=== PATIENT | male | born 1970 | race Caucasian/White ===

== ENCOUNTER 2017-08-17 06:44 | Emergency (ER) | payer OTHER, MEDICAID ==
[~2017-08-17] VITALS: Ht 175.3 cm; Wt 88.5 kg
[2017-08-17] MEDS ORDERED: HYDROcodone-ACET 10/325MG TAB PO ONE (07:45)
[2017-08-17] MEDS ORDERED: SODIUM CHLORIDE 0.9% 1,000 ML IV ONE (08:06)
[2017-08-17] MEDS ORDERED: HYDROmorphone HCL 2 MG/ML VL IV ONE ×3 (09:30→15:00)
[2017-08-17] MEDS ORDERED: ONDANSETRON HCL 4 MG/2 ML VIAL IV ONE (09:30)
[2017-08-17 09:33] LABS: Basophils # (auto) 0 uL; Basophils % (auto) 0.1 % (0.0-2.0); Eosinophils # (auto) 0 uL; Eosinophils % (auto) 0.2 % (0.0-7.0); Hemoglobin 17.6 g/dL (13.5-17.5); Lymphocytes # (auto) 0.7 uL; Mean Corpuscular Hemoglobin 30.3 pg (28.0-32.0); Mean Corpuscular Hgb Conc. 33.8 g/dL (32.0-36.0); Mean Corpuscular Volume 89.8 fL (80.0-100.0); Monocytes # (auto) 0.9 uL; Monocytes % (auto) 4.8 % (0.0-12.0); Neutrophils # (auto) 16.4 uL; Neutrophils % (auto) 90.9 % (37.0-80.0); Nucleated Red Blood Cells % 0.1 %; Platelet Count (auto) 210 10^3/uL (140-450); Red Blood Cells 5.79 10^6/uL (4.5-5.90); Red Cell Distribution Width 13.8 % (11.8-14.3); White Blood Cell 18.1 10^3/uL (4.4-10.8)
[2017-08-17 09:59] LABS: Anion Gap 6 (5-15); BUN/Creatinine Ratio 17.1; Blood Urea Nitrogen 14 mg/dL (7-18); Carbon Dioxide 26 mmol/L (21-32); Chloride 105 mmol/L (98-107); GFR African American 130 mL/min; GFR Non-African American 107 mL/min; Glucose 107 mg/dL (74-106); Potassium 3.8 mmol/L (3.5-5.1); Sodium 137 mmol/L (136-145)
[2017-08-17] MEDS ORDERED: cefTRIAXone 1GM/50ML D5W 50 ML IV ONE (13:30)
[2017-08-17 14:52] VITALS: BP 135/79
== END 2017-08-17 15:09 | disposition short-term general hospital (02) ==
LOC: ER 06:44 → EDBD 06:44 → ER 15:09
DX: S22.049A Unspecified fracture of fourth thoracic vertebra, initial encounter for closed fracture (principal); S22.059A Unspecified fracture of T5-T6 vertebra, initial encounter for closed fracture; S32.019A Unspecified fracture of first lumbar vertebra, initial encounter for closed fracture; S22.31XA Fracture of one rib, right side, initial encounter for closed fracture; F17.210 Nicotine dependence, cigarettes, uncomplicated; V43.52XA Car driver injured in collision with other type car in traffic accident, initial encounter; Y93.89 Activity, other specified; Y99.8 Other external cause status; Y92.89 Other specified places as the place of occurrence of the external cause
CPT/HCPCS: 36415; 70450; 71111; 72110; 72128; 73502; 74176; 80048; 84484; 85025; 96361; 96365; 96375; 96376; 99285; J0696; J1170; J2405; J7030